=== PATIENT | female | born 1960 | race Two or more races ===

== ENCOUNTER 2017-08-14 13:31 | Emergency (ER) | payer OTHER ==
[~2017-08-14] VITALS: Ht 167.6 cm; Wt 90.7 kg
--- NOTE | 2017-08-14 13:40 | NUR ---
[id number] FROM CLINIC: BACK PAIN S/P GLF. PATIENT ALSO C/O PAIN IN BUE. A/OX 4. BREATHING EVEN AND UNLABORED. NO SOB, NAD, VITALS STABLE. SAFETY AND COMFORT MEASURES IN PLACE. AWAITING MD ORDERS.
[2017-08-14] MEDS ORDERED: IBUPROFEN 600 MG TABLET PO ONE (14:15)
[2017-08-14] MEDS ORDERED: MECLIZINE HCL 25 MG TABLET ONE (14:15)
[2017-08-14] MEDS ORDERED: HYDROCODONE/APAP 5/325MG 1 EACH TABLET ONE (14:15)
[2017-08-14] MEDS: IBUPROFEN 600 MG TABLET PO ONE (14:19)
[2017-08-14] MEDS: MECLIZINE HCL 25 MG TABLET PO ONE (14:19)
[2017-08-14] MEDS: HYDROCODONE/APAP 5/325MG 1 EACH TABLET PO ONE (14:20)
--- NOTE | 2017-08-14 14:24 | NUR ---
PATIENT TAKEN TO XRAY VIA WHEELCHAIR.
--- NOTE | 2017-08-14 14:33 | NUR ---
PATIENT RETURNED FROM XRAY.
--- NOTE | 2017-08-14 15:49 | NUR ---
Patient discharged to home in stable condition. Written and verbal after care instructions given. Patient verbalizes understanding of instruction.
[2017-08-14 15:50] VITALS: BP 118/82
== END 2017-08-14 15:51 | disposition home or self-care (01) ==
LOC: ER 13:33
DX: S39.012A Strain of muscle, fascia and tendon of lower back, initial encounter (principal); S50.311A Abrasion of right elbow, initial encounter; S80.212A Abrasion, left knee, initial encounter; S80.211A Abrasion, right knee, initial encounter; H81.399 Other peripheral vertigo, unspecified ear; G89.29 Other chronic pain; E11.9 Type 2 diabetes mellitus without complications; W18.39XA Other fall on same level, initial encounter; Y93.89 Activity, other specified; Y92.89 Other specified places as the place of occurrence of the external cause; Y99.8 Other external cause status
CPT/HCPCS: 72100-TC; A4606; J8597; Z7610